=== PATIENT | female | born 1990 | race Caucasian/White ===

== ENCOUNTER 2017-07-16 21:37 | Emergency (ER) | payer MEDICAID, SELFPAY ==
[2017-07-16] MEDS ORDERED: LACTATED RINGERS 1,000 ML IVS ONE (21:52)
--- NOTE | 2017-07-16 21:54 | ED.PDOC ---
History of Present Illness - General Chief Complaint: Syncope/Near Syncope Stated Complaint: Feeling of fainting x 3 episodes Time Seen by Provider: 07/16/17 21:44 Source: patient, family Exam Limitations: no limitations - History of Present Illness Initial Comments: Fozia Yang 27 y/o female brought by family after she almost passed out 3 x but was held by when she was about to fall to the floor denies abdominal pain,chest pains,SOB , or vaginal bleeding.Has regular care in [place] where she lives.She is [id number];LMP February 2017. Timing/Prior Episodes: no prior history, multiple episodes today Precipitating Factors: other - patient Context: standing Episode Description: see hpi Loss of Consciousness: brief (seconds) Current Symptoms: back to normal, other - talking,laughing Allergies/Adverse Reactions: Allergies NO KNOWN ALLERGY Allergy (Unverified 01/28/14 18:16) Home Medications: Ambulatory Orders Aspirin [Aspirin Adult Low Dose] 81 mg PO DAILY 07/16/17 Vit W/ Ferrous Fumara [] 1 tab PO DAILY 07/16/17 Review of Systems - Review of Systems Constitutional: States: no symptoms reported EENTM: States: no symptoms reported Respiratory: States: no symptoms reported Cardiology: States: no symptoms reported Gastrointestinal/Abdominal: States: no symptoms reported Genitourinary: States: no symptoms reported Musculoskeletal: States: no symptoms reported Skin: States: no symptoms reported Neurological: States: no symptoms reported Endocrine: States: no symptoms reported Hematologic/Lymphatic: States: no symptoms reported Past Medical History (General) - Patient Medical History Hx Stroke: No Hx Congestive Heart Failure: No Hx Diabetes: No Hx Other PMH: Yes - positive For Leiden V but no hx of blood clots Surgical History: other - - Vaccination History Hx Influenza Vaccination: Yes - 2017 - Social History Hx Tobacco Use: No Hx Physical Abuse: No Hx Emotional Abuse: No Hx Suspected Abuse: No - Female History Patient is a Female of Child Bearing Age (10 -59 yrs old): Yes Hx Last Menstrual Period: 02/14/17 Patient : Yes Expected Date of Delivery:: 11/27/17 Physical Exam - Physical Exam General Appearance: Alert, Comfortable, No apparent distress Eyes, Ears, Nose, Throat Exam: PERRL/EOMI, normal ENT inspection, pharynx normal Neck: non-tender, supple, limited range of motion Cardiovascular/Respiratory: normal peripheral pulses, normal breath sounds Gastrointestinal/Abdominal: non tender, soft, other - heart tone -137 Back Exam: no vertebral tenderness Extremity: no pedal edema, no calf tenderness Mental Status: alert, oriented x [address] Exam: normal hearing, normal speech, PERRL Coordination/Gait: normal gait Motor/Sensory: no motor deficit, no sensory deficit, no pronator drift Skin Exam: normal color, warm/dry Lymphatic: no adenopathy Progress - Progress Progress: 07/16/17 22:02 Vital Signs - 8 hr 07/16/17 07/16/17 21:44 21:45 Pulse Rate [ 102 H Right Radial] Respiratory 20 Rate Blood Pressure 140/99 139/94 [Left Arm] O2 Sat by Pulse 100 Oximetry Standing BP-139 /94 HR-104 - Results/Orders Results/Orders: Laboratory Tests 07/16/17 07/16/17 07/16/17 21:55 21:55 23:00 WBC 9.8 RBC 4.00 L Hgb 12.5 Hct 35.9 L MCV 89.8 MCH 31.2 H MCHC 34.9 RDW 13.3 Plt Count 174 MPV 9.1 Absolute Neuts (auto) 7.70 H Absolute Lymphs (auto) 1.40 Absolute Monos (auto) 0.60 Absolute Eos (auto) 0.10 Absolute Basos (auto) 0.00 Neutrophils % 78.5 H Lymphocytes % 14.4 L Monocytes % 6.0 Eosinophils % 0.9 L Basophils % 0.2 Sodium 137 Potassium 3.4 L Chloride 107 Carbon Dioxide 24 Anion Gap 9.4 L BUN 8 Creatinine 0.59 L BUN/Creatinine Ratio 13.6 Random Glucose 107 H Serum Osmolality 272.6 L Calcium 8.9 Total Bilirubin 0.3 AST 22 ALT 19 Alkaline Phosphatase 53 Serum Total Protein 6.7 Albumin 3.5 Globulin 3.2 Albumin/Globulin Ratio 1.1 Urine Color Urine Appearance Urine pH Ur Specific [place] Urine Protein Urine Glucose (UA) Urine Ketones Urine Blood Urine Nitrite Urine Bilirubin Urine Urobilinogen Ur Leukocyte Esterase Urine RBC Urine WBC Ur Epithelial Cells Urine Bacteria Urine Opiates Screen Negative Urine Barbiturates Negative Ur Phencyclidine Scrn Negative U Amphetamin/Meth Scrn Negative U Benzodiazepines Scrn Negative U Cocaine Metab Screen Negative U Cannabinoids Screen Negative 07/16/17 23:00 WBC RBC Hgb Hct MCV MCH MCHC RDW Plt Count MPV Absolute Neuts (auto) Absolute Lymphs (auto) Absolute Monos (auto) Absolute Eos (auto) Absolute Basos (auto) Neutrophils % Lymphocytes % Monocytes % Eosinophils % Basophils % Sodium Potassium Chloride Carbon Dioxide Anion Gap BUN Creatinine BUN/Creatinine Ratio Random Glucose Serum Osmolality Calcium Total Bilirubin AST ALT Alkaline Phosphatase Serum Total Protein Albumin Globulin Albumin/Globulin Ratio Urine Color Yellow Urine Appearance Sl cloudy Urine pH 7.0 Ur Specific [place] 1.015 Urine Protein Negative Urine Glucose (UA) Negative Urine Ketones Negative Urine Blood Negative Urine Nitrite Negative Urine Bilirubin Negative Urine Urobilinogen 0.2 Ur Leukocyte Esterase Negative Urine RBC 0-1 Urine WBC 1-3 Ur Epithelial Cells 0-1 Urine Bacteria 1+ Urine Opiates Screen Urine Barbiturates Ur Phencyclidine Scrn U Amphetamin/Meth Scrn U Benzodiazepines Scrn U Cocaine Metab Screen U Cannabinoids Screen Last Vital Signs Temp 98.6 F 07/16/17 21:44 Pulse 96 H 07/16/17 23:00 Resp 18 07/16/17 23:00 BP 135/72 07/16/17 23:00 Pulse Ox 97 07/16/17 23:00 - EKG/XRAY/CT EKG: Sinus, no ST T wave changes Comments: Heart rate 96;1st degree av block Departure - Departure Clinical Impression: Syncope Qualifiers: Syncope type: unspecified Qualified Code(s): R55 - Syncope and collapse Qualifiers: Weeks of gestation: 20 weeks Qualified Code(s): Z3A.20 - 20 weeks gestation of Time of Disposition: 23:24 Disposition: Discharge to Home or Self Care Departure Forms: ED Discharge - Pt. Copy, Patient Portal Self Enrollment Instructions: Common Discomforts and Bodily Changes During , Managing Symptoms of , DI for -- Discomforts and Remedies Home Medications: Ambulatory Orders Aspirin [Aspirin Adult Low Dose] 81 mg PO DAILY 07/16/17 Vit W/ Ferrous Fumara [] 1 tab PO DAILY 07/16/17 Additional Instructions: FOLLOW UP WITH SORIN GALLEGO 07/18/2017 patient to call for appointment;Return to emergency room as needed
[2017-07-16 22:55] VITALS: TEMP 98.6
[2017-07-16 23:37] VITALS: BP 116/66; O2SAT 99
== END 2017-07-16 23:37 | disposition home or self-care (01) ==
LOC: ER 21:37
DX: O99.412 Diseases of the circulatory system complicating pregnancy, second trimester (principal); R55 Syncope and collapse; I44.0 Atrioventricular block, first degree; Z3A.20 20 weeks gestation of pregnancy
CPT/HCPCS: 36415; 80053; 80307; 81001; 85025; 93005; J7120

== ENCOUNTER 2017-08-03 18:55 | Emergency (ER) | payer MEDICAID ==
[2017-08-03 19:41] VITALS: TEMP 98.9
--- NOTE | 2017-08-03 19:47 | ED.PDOC ---
History of Present Illness - General Chief Complaint: General Stated Complaint: right knee and thigh pain Time Seen by Provider: 08/03/17 19:34 Source: patient, RN notes reviewed, Vital Signs reviewed Exam Limitations: no limitations - History of Present Illness Initial Comments: Patient comes to ER with c/o R leg pain @ thigh and lateral, posterior aspect of knee. She thinks she has a blood clot due to having Factor V Leiden. She was actually seen in the ER in [place] on Tuesday and Tuesday. She had sonograms done on both of those visits. She thinks they missed the blood clot. No prior blood clots. No swelling. She is 23 weeks . Timing/Duration: getting worse - over the past 4 days Severity: moderate Improving Factors: nothing Worsening Factors: nothing Associated Symptoms: denies symptoms Allergies/Adverse Reactions: Allergies NO KNOWN ALLERGY Allergy (Verified 08/03/17 20:39) Home Medications: Ambulatory Orders Aspirin [Aspirin Adult Low Dose] 81 mg PO DAILY 07/16/17 Vit W/ Ferrous Fumara [] 1 tab PO DAILY 07/16/17 Review of Systems - Review of Systems Constitutional: States: no symptoms reported Respiratory: States: no symptoms reported Cardiology: States: no symptoms reported Musculoskeletal: States: see HPI Skin: States: no symptoms reported Neurological: States: no symptoms reported Hematologic/Lymphatic: States: see HPI All other Systems: No Change from Baseline Past Medical History (General) - Patient Medical History Hx Seizures: No Hx Stroke: No Hx Dementia: No Hx Asthma: No Hx of COPD: No Hx Cardiac Disorders: No Hx Congestive Heart Failure: No Hx Pacemaker: No Hx Hypertension: No Hx Thyroid Disease: No Hx Diabetes: No Hx Gastroesophageal Reflux: No Hx Renal Disease: No Hx Cancer: No Hx of HIV: No Hx Hepatitis C: No Hx MRSA: No Surgical History: other - Vaccination History Hx Tetanus, Diphtheria Vaccination: Yes Hx Influenza Vaccination: Yes - Social History Hx Tobacco Use: No Hx Alcohol Use: No Hx Substance Use: No Hx Substance Use Treatment: No Hx Depression: No Feels Threatened In Home Enviroment: No Feels Threatened In a Relationship: No Hx Physical Abuse: No Hx Emotional Abuse: No Hx Suspected Abuse: No - Female History Patient is a Female of Child Bearing Age (10 -59 yrs old): Yes Hx Last Menstrual Period: 02/14/17 Patient : Yes Expected Date of Delivery:: 11/29/17 Family Medical History - Family History Mother Family History: No Known Living Status: Still Living Physical Exam - Physical Exam General Appearance: Alert, Comfortable, No apparent distress, Well Developed, Well Groomed, Well Hydrated, Well Nourished Ears, Nose, Throat: hearing grossly normal Neck: supple, normal inspection Respiratory: lungs clear, normal breath sounds, no respiratory distress, no accessory muscle use Cardiovascular/Chest: normal peripheral pulses, regular rate, rhythm, no edema, no gallop, no murmur Peripheral Pulses: dorsalis pedis,right: 2+ Extremity: normal range of motion, normal inspection, no pedal edema, calf tenderness - Mild lateral R upper calf tenderness, negative Ulices's sign Neurologic: no motor/sensory deficits, alert, normal mood/affect, oriented x 3 Skin Exam: normal color, warm/dry Comments: Vital Signs 08/03/17 19:10 Temperature 98.9 F Pulse Rate [ 97 H monitor] Respiratory 16 Rate Blood Pressure 124/82 [Left Arm] O2 Sat by Pulse 96 Oximetry Progress - Progress Progress: 08/03/17 20:51 Reassurance given to patient. She has now had 3 normal sonograms. Recommended hot compresses to help with discomfort. - Results/Orders Results/Orders: Laboratory Tests 08/03/17 08/03/17 08/03/17 19:54 19:54 19:54 WBC 10.7 RBC 4.14 L Hgb 13.1 Hct 38.0 MCV 91.6 MCH 31.6 H MCHC 34.4 RDW 13.2 Plt Count 161 MPV 9.0 Absolute Neuts (auto) 9.00 H Absolute Lymphs (auto) 1.10 Absolute Monos (auto) 0.50 Absolute Eos (auto) 0.10 Absolute Basos (auto) 0.00 Neutrophils % 84.7 H Lymphocytes % 10.2 L Monocytes % 4.4 Eosinophils % 0.5 L Basophils % 0.2 PT 10.7 INR 0.950 PTT (SP) 26.6 D-Dimer, Quantitative 811 H* Sodium 136 Potassium 3.3 L Chloride 105 Carbon Dioxide 24 Anion Gap 10.3 L BUN 10 Creatinine 0.42 L BUN/Creatinine Ratio 23.8 H Random Glucose 84 Serum Osmolality 270.2 L Calcium 9.2 Total Bilirubin 0.3 AST 16 ALT 20 Alkaline Phosphatase 51 Serum Total Protein 6.7 Albumin 3.5 Globulin 3.2 Albumin/Globulin Ratio 1.1 D-Dimer is within the normal limits for her stage of - EKG/XRAY/CT Xray Comments: RLE Doppler: No DVT Departure - Departure Clinical Impression: Leg pain, lateral Qualifiers: Laterality: right Qualified Code(s): M79.604 - Pain in right leg Time of Disposition: 20:52 Disposition: Discharge to Home or Self Care Condition: Good Departure Forms: ED Discharge - Pt. Copy, Patient Portal Self Enrollment Instructions: DI for Leg Pain Diet: resume usual diet Activity: increase activity as tolerated Home Medications: Ambulatory Orders Aspirin [Aspirin Adult Low Dose] 81 mg PO DAILY 07/16/17 Vit W/ Ferrous Fumara [] 1 tab PO DAILY 07/16/17 Additional Instructions: Hot compresses 3-5X/day
--- NOTE | 2017-08-03 20:47 | US ---
EXAM DESCRIPTION: Venous,Lower Extremity RT CLINICAL HISTORY: 27 years, Female, pain w/ hx of Factor V Leiden COMPARISON: None. TECHNIQUE: Duplex imaging of the deep venous system of the right lower extremity was performed. FINDINGS: The right common femoral, femoral, and popliteal veins demonstrate normal compression, augmentation and color flow without thrombus. The right peroneal and posterior tibial veins are patent as well. IMPRESSION: No right lower extremity DVT. Electronically signed by: Guillermo Hoang MD 08/03/2017 8:46 PM [facility]
[2017-08-03 20:57] VITALS: BP 127/79; O2SAT 98
== END 2017-08-03 20:58 | disposition home or self-care (01) ==
LOC: ER 18:55
DX: O99.112 Other diseases of the blood and blood-forming organs and certain disorders involving the immune mechanism complicating pregnancy, second trimester (principal); D68.51 Activated protein C resistance; Z3A.23 23 weeks gestation of pregnancy; Z79.82 Long term (current) use of aspirin